=== PATIENT | female | born 1995 | race Caucasian/White ===

== ENCOUNTER 2020-09-21 18:49 | Emergency (ER) | payer SELFPAY ==
[~2020-09-21] VITALS: Ht 170.2 cm; Wt 65.1 kg
[2020-09-21 18:53] VITALS: BP 128/52
--- NOTE | 2020-09-21 19:44 | NUR ---
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
== END 2020-09-21 20:10 | disposition home or self-care (01) ==
LOC: ED 19:50
DX: H72.2X1 Other marginal perforations of tympanic membrane, right ear (principal); H92.01 Otalgia, right ear; F10.10 Alcohol abuse, uncomplicated; F17.210 Nicotine dependence, cigarettes, uncomplicated; Z72.9 Problem related to lifestyle, unspecified; Y90.0 Blood alcohol level of less than 20 mg/100 ml
CPT/HCPCS: 99281